=== PATIENT | male | born 1960 | race African-American/Black ===

== ENCOUNTER 2023-03-03 16:21 | Emergency (ER) | payer OTHER ==
[~2023-03-03] VITALS: Ht 188 cm; Wt 82.0 kg
[2023-03-03 16:32] VITALS: BP 98/58
== END 2023-03-03 19:26 | disposition left against medical advice (07) ==
LOC: EDBD 16:21 → ER 16:21
DX: R55 Syncope and collapse (principal); R53.1 Weakness; I10 Essential (primary) hypertension; F12.90 Cannabis use, unspecified, uncomplicated; Z90.89 Acquired absence of other organs
CPT/HCPCS: 93005